=== PATIENT | female | born 1990 ===

== ENCOUNTER 2024-08-16 11:03 | Outpatient (AMB) | payer BC, SELFPAY ==
--- OUTSIDE RECORDS SUMMARY | 2024-08-16 11:05 | XMS_ITS | Clinical Summary ---
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 Role Phone Unavailable Primary Care Provider Unavailabl e Allergies No known active allergies Medications No known medications Active Problems No known active problems Encounters Date Type Department Care Team Description 06/15/2024 3:00 PM EST Office Visit [facility] [address] [place] [address] Sacha Harkins 06/15/2024 Travel 06/15/2024 Telephone [facility] [address] [place] [address] Sacha Harkins emergency appt no insurance from Last 3 Months Social History Tobacco Use Types Packs/Day Years Used Date Smoking Tobacco: Never Assessed Comments Unknown Sex and Gender Information Value Date Recorded Sex Assigned at Female 06/15/2024 11:18 AM EST Legal Sex Female 11:11 AM EST Gender Identity Female 06/15/2024 11:18 AM EST Sexual Orientation Choose not to disclose 2024 11:18 AM EST Plan of Treatment Health Maintenance Due Date Last Done Comments Dental Oral Exam 1991 Dental Prophylaxis 1991 Dental X-Ray: Bitewings 1991 Depression Screening 1991 HIV Screening 1991 SDOH Screening 1991 Alcohol/Substance Use Screening 2003 Tobacco Screening 2003 Family Planning (PISQ) 11/08/2006 Hepatitis C Screening 11/08/2009 Hepatitis B Vaccines (1 of 3 - 19+ 3-dose series) 11/08/2010 Pap Smear 11/08/2012 Cervical Cancer Screening 11/08/2021 HPV/Cotest 11/08/2021 COVID-19 Vaccine (2023-2 5 season) 2023 Influenza Vaccine (#1) 2023 4, 06/07/2022 Dental X-Ray: Full Mouth 06/16/2027 06/15/2024 DTaP/Tdap/Td Vaccines (2 - T d or Tdap) 10/11/2032 10/11/2022 Zoster Vaccines (1 of 2) 11/08/2041 RSV Patients and Patients Aged 60 years or older (1 - 1-dose 75+ series) 11/08/2066 HIB Vaccines Aged Out No longer eligi ble based on patient's age to complete this topic HPV Vaccines Aged Out No longer eligi ble based on patient's age to complete this topic Hepatitis A Vaccines Aged Out No long er eligible based on patient's age to complete this topic IPV Vaccines Aged Out No longer eligi ble based on patient's age to complete this topic Meningococcal Vaccine Aged Out No monet lidia eligible based on patient's age to complete this topic Pneumococcal Vaccine: Pediatrics (0 to 5 Years) and At-Risk Patients (6 to 49) Years) Aged Out No longer eligible b ased on patient's age to complete this topic RSV under 20 months Aged Out No longe r eligible based on patient's age to complete this topic Rotavirus Vaccines Aged Out No longer eligible based on patient's age to complete this topic Procedures Procedure Name Priority Date/Time Associated Diagnosis Comments PANORAMIC RADIOGRAPHIC IMAGE Routine 06/15/2024 3:00 PM EST 33 LIMITED ORAL EVALUATION - PROBLEM FOCUSED Routine 06/15/2024 3:00 PM EST from Last 3 Months
--- NOTE | 2024-08-16 11:09 | AM.OFFWIN_ITS ---
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 Patient Tobacco Use Status: Never used Tobacco Allergies No Known Allergies Allergy (Verified 08/16/24 11:13) Do you need a note to return to daycare/school/sports/work: No HPI HPI Comments History of Present Illness Details 33 y/o Female patient who presents to [facility] walk in clinic with c/o URI symptoms for 4 days. C/o Fevers, fatigue and headaches. with similar symptoms. [facility] Medical History (Updated 08/16/24 @ 11:30 by Johanny Munoz NP) Acute respiratory disease Social History Patient Tobacco Use Status: Never used Tobacco Review of Systems Const All systems reviewed & are unremarkable except as noted in HPI and below Physical Exam Vital Signs: Last Vital Signs Temp 97.7 F 08/16/24 11:13 Pulse 91 08/16/24 11:13 BP 118/70 08/16/24 11:13 Pulse Ox 98 08/16/24 11:13 Oxygen Delivery Method Room Air 08/16/24 11:13 Const General: no acute distress; No comfortable Nutritional Appearance: thin Orientation/consciousness: patient oriented x3 HEENT Head: Yes normocephalic Ears: external ears normal and TM's normal bilaterally General nose exam: Nasal discharge present Face and sinus: Yes sinuses nontender Mouth: moist mucous membranes Throat: Yes uvula midline Resp Effort & Inspection: normal respiratory effort and able to speak in complete sentences Auscultation: clear to auscultation bilaterally, no crackles, no rales, no rhonchi and no wheezes Cardio Heart sounds: S1 normal heart sound present and S2 normal heart sound present Neuro General: patient oriented x3 Assessment & Plan Assessment & Plan (1) Acute respiratory disease: Code(s): J06.9 - Acute upper respiratory infection, unspecified Plan: Ordered SARs OTC cold/flu remedies Rest and hydrate well with warm fluids Acetaminophen for fever and pain relief. Orders: Orders SARS-CoV2/FLU/RSV Today J06.9 - Acute upper respiratory infection, unspecified Medications: New acetaminophen 1,000 mg (2 x 500 mg) PO Q6H PRN 30 caps 0RF pain J06.9 - Acute upper respiratory infection, unspecified Coding Level of Care Code New Pt Level 4 (70360) Diagnoses Acute respiratory disease J06.9 Time Spent (min) 20
[2024-08-16 11:13] VITALS: BP 118/70; PULSE 91; TEMP 36.5; O2SAT 98
== END 2024-08-16 11:34 | disposition home or self-care (01) ==
PROVIDERS: Visit Provider Nurse Practitioner Family
DX: J06.9 Acute upper respiratory infection, unspecified (principal)

== ENCOUNTER 2024-08-16 11:03 | Outpatient (REF) | payer BC, SELFPAY ==
--- OUTSIDE RECORDS SUMMARY | 2024-08-16 11:34 | XMS_ITS | Clinical Summary ---
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
[2024-08-16 14:46] LABS: Influenza A PCR NEGATIVE (Negative); Influenza B PCR NEGATIVE (Negative); Resp Syncy Virus RNA Qual PCR NEGATIVE (Negative); SARS COV2 PCR INHOUSE NEGATIVE (Negative)
== END 2024-08-16 11:04 | disposition home or self-care (01) ==
LOC: HO.LAB 11:03
PROVIDERS: Nurse Practitioner Family
DX: J06.9 Acute upper respiratory infection, unspecified (principal)
CPT/HCPCS: 0241U